=== PATIENT | female | born 1970 | race Caucasian/White ===

== ENCOUNTER 2018-06-12 20:20 | Inpatient (IN) ==
[2018-06-12] MEDS ORDERED: Melatonin 5 MG Tablet PO PRN (20:33)
[2018-06-12] MEDS ORDERED: Aluminum/Magnesium/Simethacone Susp 30 ML UDC PO PRN (20:33)
[2018-06-12] MEDS ORDERED: Acetaminophen 325 MG Tablet PO PRN (20:33)
[2018-06-13] MEDS ORDERED: Ibuprofen 600 MG Tablet PO PRN (08:23)
--- NOTE | 2018-06-13 08:39 | P.HPPSY ---
Provisional Diagnosis Admission Date: June 12, 2018 21:45 Marion I.: 1. Bipolar disorder, presently hypomanic Rule-out primary psychotic disorder, such as schizoaffective disorder, bipolar type Rule-out comorbid anxiety disorder Marion II.: Deferred Competence Certification of Person's Competence To Provide Express and Informed Consent I have personally examined Morelia Glaser, a person being served at [facility] on, June 13, 2018 0833. Express and informed consent means consent voluntarily given in writing, by a competent person, after sufficient explanation and disclosure of the subject matter involved to enable the person to make a knowing and willful decision without any element of force, fraud, deceit, duress, or other form of constraint or coercion. This person is 18 years of age or older, is not now known to be incompetent to consent to treatment with a guardian advocate, and does not have a health care surrogate or proxy currently making medical treatment decisions. I have found this person to be one of the following: [] Competent to provide express and informed consent, as defined above, for voluntary admission to this facility and is competent to provide express and informed consent for treatment. He/she has the consistent capacity to make well reasoned, willful, and knowing decisions concerning his or her medical or mental health treatment. The person fully and consistently understands the purpose of the admission for examination/placement and is fully capable of personally exercising all rights assured [place] [] Incompetent to provide express and informed consent to voluntary admission, and this is incompetent to provide express and informed consent to treatment. The person must be transferred to involuntary status and a petition for a guardian advocate filed with the Circuit Court. [X] Refusing to provide express and informed consent to voluntary admission but is competent to provide express and informed consent for treatment. The person must be discharged or transferred to involuntary status. Form shall be completed within 24 hours of a person's arrival at the receiving facility and filed in the clinical record of each person: 1. Admitted on a voluntary basis 2. Permitted to provide express and informed consent to his/her own treatment 3. Allowed to transfer from involuntary to voluntary status 4. Prior to permitting a person to consent to his or her own treatment after having been previously found incompetent to consent to treatment. History of Present Illness Capacity: Has capacity Chief Complaint: [place] Act History of Present Illness: Ms. Glaser is a 48 year-old female with reported previous diagnoses of BPAD and schizophrenia who was transferred from [facility] under a [place] Act. Documentation from outside hospital reviewed. Patient presented to outside hospital from her place of employment due to bizarre behavior. Collateral information obtained from patient's son indicated that patient carries a diagnosis of BPAD. Medication non-adherence was suspected. Patient spoke of "talking to the devil everyday." Reviewing our electronic medical record, I see no previous visits within our system. Patient seen and examined with nurse. Chart reviewed. Case discussed with nursing staff. Patient has presented no significant behavioral problem on the unit. There has been no evidence of any suicidality or homicidality on the unit. On my examination today, the patient presents as somewhat irritable and vigilant. Her eye contact is intense. She attributes reported bizarre behavior to anxiety, noting that she gets panic attacks from [id number]. She suspects that she had this attack because she had not slept for 2 days and had not been eating well. 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 Presently, the patient does not report significant anxiety. Affect is irritable but the patient reports no particular issues with mood. No reported racing thoughts. No increased goal-directed activity. No grandiosity noted. She denies any suicidal or homicidal ideation, intent or plan. She tells me that she would never hurt herself because "I am a beautiful woman." She denies any audiovisual hallucinations and in particular does not verbalize communicating with the devil. Although the patient is somewhat vigilant and guarded, I can elicit no alexandre delusional material. Patient seems distrustful of mental health providers in general, and I do note that she castigated the psychiatric center consultant who evaluated her at the outside hospital. She also articulates a belief to me that her hospitalization here is "all about the money" and that an energy attorney once told her that the Barfield Act was a scam (by whom is unclear) to get money. The remainder of the psychiatric ROS is negative. No acute physical complaints. Patient is requesting discharge from the inpatient psychiatric unit today. She is not interested in pursuing any sort of medication management. Past psychiatric history: The patient reports a history of previous diagnoses of bipolar disorder versus schizophrenia with onset 3 years ago. Patient disagrees with this diagnosis and believes that she suffers primarily from anxiety. She is not presently under the care of a psychiatrist or other mental health provider. She reports 2 previous psychiatric admissions, one at [facility] and another at [facility], both reportedly a few years ago. She makes a point of saying that the first hospitalization resulted in a $50,000 bill and the second an $11,000 bill. She denies any history of suicide attempts but does admit to contemplating suicide when she was 12 years old because of bullying by peers on account of her mother's occupation as a prostitute. She denies any history of violent behavior. Family history: The patient reports that her mother carried a diagnosis of schizophrenia. She denies any family history of suicide or suicide attempts. Chemical dependency history: The patient denies any abuse of drugs or alcohol. Patient does have a history of 1 previous DUI but insists that she does not drink presently. Social history: The patient reports that she is presently residing in her car. 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 However, this position was short-lived and her current position does not provide housing. 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 She has been working in this capacity for about the last month or so. 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 She is single and has a 20-year-old son. She enlisted in the [employer] but did not complete basic training and says that she was expelled from the [employer] because she admitted to a history of previous SI as noted above. She reports a history of 1 previous DUI on alcohol 6 years ago. She denies any other legal issues. She denies any access to guns or firearms. She describes herself as spiritual saying that she is against organized adventism. She denies any history of physical, verbal or sexual abuse. She does have a history of bullying as noted above. She denies any PTSD symptoms at this time saying "I don't even care about that [bullying] anymore." Past medical history: Patient reports history of dental issues, namely gum infection. She notes that she has a dentist appointment coming up soon. Medications: Patient takes no home medications. Allergies: No known allergies. With the patient's permission, I obtained collateral information from her son Fred Haynes at [phone]. Mr. Haynes notes that he does not live with patient but does maintain telephone contact, most recently last week. He notes that the patient has a history of bipolar disorder and is poorly adherent to treatment. He notes that the patient periodically does have "panic attacks" in which she believes that someone is trying to kill her or in which she hears the devil. These are usually self-limited, and the most recent episode was in August of this year per Mr. Haynes. Mr. Haynes knows of no history of suicidal or aggressive behavior (except in self-defense) by the patient. Mr. Haynes does not verbalize any particular concerns about patient's discharge today, although he does note that he is "100%" certain that the patient will not follow up with outpatient mental health. I have referred Mr. Haynes to [facility] for assistance and support in helping a loved one with mental illness. 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 - Patient Strengths Patient's strengths (minimum of 2): Attending to basic needs. Verbally fluent. Medications and Allergies Active Medications: Active Medications Al Hydrox/Mg Hydrox/Simethicone (Mag-Al Plus Susp Liq) 30 ml PO Q6H PRN PRN Reason: DYSPEPSIA Al Hydroxide/Mg Hydroxide (Milk Of Magnesia Liq) 30 ml PO Q12H PRN PRN Reason: Mild Constipation Ibuprofen (Motrin) 600 mg PO Q8H PRN PRN Reason: PAIN SCALE 1 TO 10 Melatonin (Melatonin) 5 mg PO HS PRN PRN Reason: INSOMNIA Nicotine (Habitrol 14 Mg Patch.24 Hr) 1 patch T-DERMAL DAILY PRN PRN Reason: Nicotine craving Patch Removal (Remove Old Patch) 1 each T-DERMAL HS JALEEL Last Admin: 06/13/18 02:48 Dose: Not Given Allergies Allergy/AdvReac Type Severity Reaction Status Date / Time No Known Allergies Allergy Unverified 06/12/18 20:33 Results - Labs CBC & Chem 7: 06/13/18 08:20 06/13/18 08:20 Labs: Labs from outside hospital reviewed: CMP reveals mild hypokalemia at 3.4. Renal and hepatic function wnl. CBC unremarkable. UTox neg EtOH undetectable UA 1+ ketones, 1+ protein Head CT read as no acute intracranial process EKG read as NSR QTc 486ms. Exam Vital signs: Intake & Output 06/12/18 06/13/18 06/13/18 18:59 06:59 18:59 Weight 50.7 kg Other: Weight On Admission 50.7 kg Narrative: Physical examination was completed by ED provider at outside hospital. On my examination today, the patient appears to be in no acute physical distress. No motor abnormalities noted. Labs and vital signs reviewed. Mental Status Examination Appearance: Appropriate Consciousness: Alert, Vigilant Orientation: x4 Motor Activity: Other (No motor abnormalities noted) Speech: Unremarkable Language: Adequate Fund of Knowledge: Adequate Attention and Concentration: Adequate Memory: Unremarkable (Grossly intact on clinical exam) Mood: Other (No reported issues with mood) Affect: Irritable Thought Process & Associations: Intact Thought Content: Appropriate Hallucination Type: None Delusion Type: None Suicidal Ideation: No Suicidal Plan: No Suicidal Intention: No Homicidal Ideation: No Homicidal Plan: No Homicidal Intention: No Mental Status Exam Remarks: Insight and judgment are fair to poor. Assessment and Plan - Assessment (1) Bipolar disorder, current episode hypomanic Code(s): F31.0 - Bipolar disorder, current episode hypomanic Status: Acute - Plan Plan: 48-year-old female with psychiatric history as detailed above who presents in transfer from outside hospital under a Barfield act. On my examination today, patient presents with irritability, reported decreased sleep, and anxiety. Patient's current presentation seems most consistent with bipolar disorder, presently hypomanic, although schizoaffective disorder, bipolar type is also in the differential. It is also possible that the patient does indeed have some degree of comorbid anxiety disorder. Much of the patient's vigilance and guardedness on my evaluation can likely be attributed to her distrust of the mental health system in general. She presently denies any suicidal or homicidal ideation. There is no evidence of self-care deficit. Collateral information obtained from patient's son does not raise any red flags. Synthesizing this information and based on the available evidence, I immigration judge that the patient does not meet the Barfield act criteria. There is no evidence of imminent risk of harm to self or others, nor is there evidence of self-care deficit to substantiate involuntary psychiatric hospitalization. Patient is requesting discharge from the inpatient psychiatric unit today, and I have no basis to retain her over her objection. I have suggested to the patient that she remain voluntarily for medication management and have offered to assist her with her self-identified problem of anxiety, but she has declined. I do feel that the patient would benefit from voluntary inpatient stabilization, and so I will discharge her AGAINST MEDICAL ADVICE. She does say that she will accept a mental health referral, and one will be provided to her on discharge. Patient is also to follow-up with primary care. I have counseled the patient to abstain from substances of abuse. I have counseled the patient regarding warning signs for need to return to the psychiatric emergency room as part of a general safety plan. I have provided the patient with no prescriptions for medications on discharge. This note serves also has my discharge summary. Justification for Continued Inpatient Stay: N/A. Request Healthcare Surrogate/Guardian Advocate?: No
[2018-06-13 08:56] LABS: Baso # (Auto) 0.1 th/mm3 (0.0-0.2); Baso % (Auto) 0.6 % (0.0-2.0); Eos # (Auto) 0.1 th/mm3 (0.0-0.4); Eos % (Auto) 1.3 % (0.0-4.0); Hemoglobin 15.3 gm/dL (11.6-15.3); Lymph % (Auto) 35.4 % (9.0-44.0); Mean Corpuscular HGB Conc 33.9 % (32.0-36.0); Mean Corpuscular Hemoglobin 31.5 pg (27.0-34.0); Mean Platelet Volume 7.7 fL (7.0-11.0); Mono # (Auto) 0.9 th/mm3 (0.0-0.9); Mono % (Auto) 10.2 % (0.0-8.0); Neut # (Auto) 4.5 th/mm3 (1.8-7.7); Neut % (Auto) 52.5 % (16.0-70.0); Platelet Count 238 th/mm3 (150-450); Red Blood Count 4.84 mil/mm3 (4.00-5.30); Red Cell Distribution Width 14.3 % (11.6-17.2); White Blood Count 8.6 th/mm3 (4.0-11.0)
[2018-06-13 09:20] LABS: Albumin 4.3 g/dL (3.4-5.0); Anion Gap 11 meq/L (5-15); Aspartate Aminotransferase 18 U/L (15-37); Blood Urea Nitrogen 21 mg/dL (7-18); Calcium 9.5 mg/dL (8.5-10.1); Carbon Dioxide 24.7 meq/L (21.0-32.0); Chloride 104 meq/L (98-107); Glomerular Filtration Rate 70 mL/min (>89); Glucose,Random 167 mg/dL (74-106); Potassium 3.6 meq/L (3.5-5.1); Sodium 140 meq/L (136-145)
[2018-06-13 09:21] LABS: Cholesterol 259 mg/dL (120-200)
[2018-06-13 09:33] LABS: Alanine Aminotransferase 22 U/L (10-53); Alkaline Phosphatase 99 U/L (45-117); Chol/HDL Ratio 4.52 Ratio; HDL Cholesterol 57.3 mg/dL (40.0-60.0); LDL Cholesterol,Calculated 184 mg/dL (0-99); Thyroid Stimulating Hormone 0.965 uIU/mL (0.358-3.740); Total Protein 8.4 g/dL (6.4-8.2); Triglycerides 88 mg/dL (42-150)
[2018-06-13 15:45] LABS: Hemoglobin A1c 5.6 % (4.3-6.0)
== END 2018-06-13 17:32 | disposition left against medical advice (07) ==
LOC: H270 21:45
PROVIDERS: ADMIT Psychiatry & Neurology Psychiatry; ATTEND Psychiatry & Neurology Psychiatry